=== PATIENT | male | born 1955 | race Caucasian/White ===

== ENCOUNTER → 2017-09-18 | Outpatient (CLI) | payer OTHER ==
[~2017-09-18] MED LIST: GADAVIST IV PRN
--- NOTE | 2017-09-18 13:27 | DIAGNOSTIC IMAGING REPORT ---
BRAIN COMBO FOR IAC CLINICAL HISTORY: S06.0X1A tinnitus. Trauma. 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 Findings of mild cerebral atrophy. There is minimal chronic small vessel change. Postcontrast images are negative for an enhancing lesion. Specific images of the internal auditory canals shows structures to be unremarkable. There is no evidence for abnormal postcontrast enhancement. The sella and parasellar regions are unremarkable. IMPRESSION: 1. Mild cerebral atrophy. 2. Minimal/mild chronic small vessel change. 3. No acute process. 4. Negative study of the internal auditory canals. The above report was generated using voice recognition software. It may contain grammatical, syntax or spelling errors. Electronically signed by: Franklin Peterson M.D. 09/18/2017 1:25 PM Dictated Date/Time: 09/18/2017 1:09 PM
== END | disposition home or self-care (01) ==
LOC: C.MRI 10:46
PROVIDERS: ATTEND Psychiatry & Neurology Neurology
DX: S06.0X1A Concussion with loss of consciousness of 30 minutes or less, initial encounter (principal); R42 Dizziness and giddiness; G31.9 Degenerative disease of nervous system, unspecified; X58.XXXA Exposure to other specified factors, initial encounter